=== PATIENT | female | born 1980 | race Caucasian/White ===

== ENCOUNTER 2017-05-26 10:47 | Emergency (ER) | payer OTHER ==
[~2017-05-26] VITALS: Ht 167.6 cm; Wt 83.9 kg
[~2017-05-26 10:47] MED LIST: ALBU8.5H4 IH; LORA10CA; MONT10TA22 PO; PRED5TAB; PSEU60TA21
--- NOTE | 2017-05-26 11:10 | NUR ---
PT AMBULATORY TO ER BED 11. C/O COUGH AND CONGESTION SINCE YESTERDAY. HX OF ASTHMA. NOT RELIEVED W/ NEBULIZER. PLACED ON MONITOR. AWAITING MD MCKEON.
[2017-05-26] MEDS ORDERED: ALBUTEROL FS 2.5 MG/3 ML VIAL.NEB NEB ONE (11:30)
[2017-05-26] MEDS ORDERED: predniSONE 20 MG TABLET PO ONE (11:30)
[2017-05-26] MEDS ORDERED: IPRATROPIUM NEB FS 0.5 MG/2.5 ML AMPUL.NEB NEB ONE (11:30)
--- NOTE | 2017-05-26 11:59 | NUR ---
RADIOLOGY AT BEDSIDE FOR CHEST XRAY.
[2017-05-26] MEDS ORDERED: predniSONE 20 MG TABLET ONE (12:14)
--- NOTE | 2017-05-26 12:24 | NUR ---
RT AT BEDSIDE FOR BREATHING TREATMENT.
[2017-05-26] MEDS ORDERED: ALBUTEROL FS 2.5 MG/3 ML VIAL.NEB ONE (12:25)
[2017-05-26] MEDS ORDERED: IPRATROPIUM NEB FS 0.5 MG/2.5 ML AMPUL.NEB ONE (12:26)
--- NOTE | 2017-05-26 13:14 | NUR ---
Patient discharged to home in stable condition. Written and verbal after care instructions given. Patient verbalizes understanding of instruction.
[2017-05-26 13:16] VITALS: BP 132/80
== END 2017-05-26 13:17 | disposition home or self-care (01) ==
LOC: ER 10:49
DX: J45.901 Unspecified asthma with (acute) exacerbation (principal)
CPT/HCPCS: 71010; 84703; 94640 ×2; 99284; A4606; J7512; Z7610